=== PATIENT | male | born 1985 | race Caucasian/White ===

== ENCOUNTER 2019-09-22 15:32 | Emergency (ER) | payer BC, SELFPAY ==
[2019-09-22 15:49] VITALS: BP 115/74; PULSE 85; RESP 20; TEMP 36.7; O2SAT 99
--- NOTE | 2019-09-22 15:57 | ED.BACK ---
HPI - Back Pain/Injury General Stated Complaint: Back Pain Time Seen by Provider: 09/22/19 15:57 Source: patient and RN notes reviewed History of Present Illness HPI Narrative: Patient is a 34-year-old male that presents the urgent care with complaints of right mid back pain. Patient states that last night he was at his son's basketball game and throwing shots over and over and feels that he may have pulled something in his back. Patient states it is difficult to bend at the waist or to raise up from a laying position. Patient is used heating pad, ibuprofen, Tylenol. Patient denies shortness of breath. No other acute complaints. Denies any fall or trauma. No acute distress noted. Patient read the plan of care. Related Data Allergies Allergy/AdvReac Type Severity Reaction Status Date / Time iodine Allergy Intermediate THROAT Verified 09/22/19 16:03 SWEMAGNOS shellfish derived Allergy Intermediate THROAT Verified 09/22/19 16:03 KALEN Review of Systems Review of Systems: Narrative: CONSTITUTIONAL: Denies fever, chills, or sweats. EYES: Denies visual changes, redness, or discharge. ENT: Denies rhinorrhea, congestion, sore throat, or otalgia. CARDIOVASCULAR: Denies chest pain, palpitations, or edema. RESPIRATORY: Denies cough or dyspnea. GASTROINTESTINAL: Denies abdominal pain, nausea, vomiting, or diarrhea. GENITOURINARY: Denies dysuria or hematuria. SKIN: Denies rash or itching. MUSCULOSKELETAL: Reports of right mid back pain NEUROLOGIC: Denies headache, numbness, or weakness. All other systems reviewed are negative, except as documented in HPI. PMFSH Comments At the time of my signature, I reviewed and agree with the nursing past medical, surgical, social, and family history. There is no relevant family history pertinent to the patient complaint. Exam Narrative: Exam Narrative: GENERAL: This is a well-nourished, well-developed patient, in no apparent distress. HEAD: normocephalic, atraumatic. EYES: PERRL. Sclera clear/white. Vision is grossly intact. EARS: External ears normal NOSE: External nose normal with no obvious nasal discharge THROAT: Mucous membranes moist NECK: Neck supple CARDIOVASCULAR: Regular rate and rhythm without murmurs, gallops, or rubs. RESPIRATORY: Clear to auscultation. Breath sounds equal bilaterally. No wheezes, rales, or rhonchi. SKIN: warm, intact with no suspicious lesions or rash, good texture and turgor. NEURO: awake, alert, and oriented to person, place and time. There were no obvious focal neurologic abnormalities. EXTREMITIES: No clubbing, cyanosis, or edema. BACK: Moderate right thoracic tenderness exacerbated with movement Course Vital Signs Vital signs: Vital Signs Temperature 98.0 F 09/22/19 15:49 Pulse Rate 85 09/22/19 15:49 Respiratory Rate 20 09/22/19 15:49 Blood Pressure 115/74 09/22/19 15:49 Pulse Oximetry 99 09/22/19 15:49 Temperature 98.0 F 09/22/19 15:49 Pulse Rate 85 09/22/19 15:49 Respiratory Rate 20 09/22/19 15:49 Blood Pressure 115/74 09/22/19 15:49 Pulse Oximetry 99 09/22/19 15:49 Reviewed MDM - Back Pain/Injury MDM Narrative Medical decision making narrative: Advised patient to use ibuprofen as needed. Continue to use heat or ice for comfort. Use Flexeril as a muscle relaxer prior to bedtime. Medication will make you drowsy and you should not drive or operate heavy machinery while on the medication. Follow-up with PCP within 2 to 5 days or for worsening symptoms or failure to improve. Differential Diagnosis Differential diagnosis: Likely lumbar radiculopathy, strain of lumbar region and thoracic back pain Critical Care Time Critical Care Time Critical Care Time: No Discharge Plan Discharge Clinical Impression: Strain of thoracic back region Patient Disposition: Home, Self-Care Condition: Stable Instructions: Antibiotic Form, Thoracic Back Strain (ED) Additional Instructions: Advised patient to
== END 2019-09-22 16:20 | disposition home or self-care (01) ==
PROVIDERS: Emergency Provider Nurse Practitioner Family
DX: S29.012A Strain of muscle and tendon of back wall of thorax, initial encounter (principal); X50.3XXA Overexertion from repetitive movements, initial encounter
CPT/HCPCS: 99213; G0463

== ENCOUNTER 2019-10-26 16:14 | Emergency (ER) | payer BC, SELFPAY ==
--- NOTE | ~2019-10-26 | XR_ITS ---
EXAMINATION: XR chest 2V 10/26/2019 17:01 INDICATION: Cough with fever PROCEDURE: 2 view chest COMPARISON: No prior studies for comparison. FINDINGS: The lungs are clear. The cardiomediastinal silhouette is within normal limits. There are no pleural effusions. There is no pneumothorax suspected. IMPRESSION: 1: NO ACUTE CARDIOPULMONARY DISEASE. Reviewed, dictated and finalized at location A.
[2019-10-26 16:22] VITALS: BP 116/77; PULSE 75; RESP 16; TEMP 36.8; O2SAT 99
--- NOTE | 2019-10-26 16:59 | ED.URI ---
HPI - URI/Sore Throat General Chief Complaint: Upper Respiratory Infection Stated Complaint: Cough/weakness Time Seen by Provider: 10/26/19 16:59 Source: patient, family and RN notes reviewed Mode of arrival: ambulatory Limitations: no limitations History of Present Illness HPI Narrative: 34-year-old male who presents to [facility] care accompanied by spouse with complaints of 3 days of productive cough, fatigue, runny nose, postnasal drainage, sore throat and has been feverish. He states that he has a loose productive cough expectorating some greenish-yellow sputum, some chills and general malaise and has been sleeping almost non stop for the past 3 days. Patient denies any acute shortness of breath or any noted wheezing, respirations even and non labored with no tachypnea, SAO2 99% on room air. MD elicited complaint: cough Pertinent past history: other (tobacco abuse) Onset (ago): day(s) (2) Consistency: constant Severity: moderate Pain scale (0-10): 6 Description of mucous: yellow and green Able to tolerate fluids by mouth: Yes Exacerbating factors: swallowing, exertion and deep breaths Relieving factors: nothing Associated symptoms: fever, chills, myalgias, rhinorrhea, nasal congestion, sore throat and cough Treatments prior to arrival: acetaminophen and other (Mucinex) Related Data Allergies Allergy/AdvReac Type Severity Reaction Status Date / Time iodine Allergy Intermediate THROAT Verified 10/26/19 16:39 KALEN shellfish derived Allergy Intermediate THROAT Verified 10/26/19 16:39 KALEN Review of Systems Review of Systems: Narrative: CONSTITUTIONAL:Positive fever, chills, or sweats. EYES: Denies visual changes, redness, or discharge. ENT: positive rhinorrhea, congestion, sore throat, no otalgia. CARDIOVASCULAR: Denies chest pain, palpitations, or edema. RESPIRATORY: Positive productive cough denies dyspnea. GASTROINTESTINAL: Denies abdominal pain, nausea, vomiting, or diarrhea. GENITOURINARY: Denies dysuria or hematuria. SKIN: Denies rash or itching. MUSCULOSKELETAL: Denies back pain, joint pain, or myalgibody aches. NEUROLOGIC: Denies headache, numbness, or weakness. PSYCHIATRIC: Denies anxiety or depression. All systems reviewed & are unremarkable except as noted in HPI and below PMFSH Past Medical History Medical History (Updated 10/29/19 @ 15:52 by Nara Milian NP) Right hand fracture Social History Social History (Updated 10/29/19 @ 15:40 by Nara Milian NP) Smoking packs per day: 0.5 Smoking cigarettes per day: 10.0 Years smoked: 15 Smoking pack-years: 7.50 Smoking status: Current every day smoker Living arrangements: with family Gender identity (if verbalized by the patient): Male Comments At time of signature, agree with nursing past medical, social history. There is no relevant family history pertinent to the presenting complaint Exam Narrative: Exam Narrative: GENERAL:ill-appearing, well-nourished, and in no acute distress. HEAD: Normocephalic, atraumatic. EYES: PERRLA and EOMI. ENT: Nares red edematous, with yellow green rhinorrhea no epistaxis. Mucous membranes moist.TM's normal with good light reflex, throat red with noted swelling of tonsils and post nasal drainage, no lesions or exudates noted. NECK: Supple.lymphadenopathy CHEST: Coarse breath sounds on auscultation. No respiratory distress. Loose productive cough of greenish yellow mucous, SAO2 99% on room air HEART: Regular rate and rhythm. No murmur heard. Normal peripheral pulses. ABDOMEN: Soft, nontender, nondistended, normal active bowel sounds. EXTREMITIES: Normal range of motion. No edema. SKIN: Warm, dry, no rash. NEURO: No focal deficits. Alert and oriented x3. Course Vital Signs Vital signs: Vital Signs Temperature 36.8 C 10/26/19 16:22 Pulse Rate 75 10/26/19 16:22 Respiratory Rate 16 10/26/19 16:22 Blood Pressure 116/77 10/26/19 16:22 Pulse Oximetry 99 10/26/19 16:22 Tem
== END 2019-10-26 17:37 | disposition home or self-care (01) ==
PROVIDERS: Emergency Provider Registered Nurse; PCP Family Medicine
DX: J40 Bronchitis, not specified as acute or chronic (principal); J02.9 Acute pharyngitis, unspecified; F17.210 Nicotine dependence, cigarettes, uncomplicated
CPT/HCPCS: 71046; 87081; 87804; 87880; 99213; G0463

== ENCOUNTER 2019-11-05 15:02 | Emergency (ER) | payer BC, SELFPAY ==
[2019-11-05 15:10] VITALS: BP 113/74; PULSE 71; RESP 14; TEMP 36.8; O2SAT 99
--- NOTE | 2019-11-05 15:21 | ED.URI ---
HPI - URI/Sore Throat General Chief Complaint: Upper Respiratory Infection Stated Complaint: cough/hot flashes Time Seen by Provider: 11/05/19 15:21 Source: patient and RN notes reviewed Mode of arrival: ambulatory Limitations: no limitations History of Present Illness HPI Narrative: 34-year-old male who presents to [facility] care with complaints of persistent cough for the past 2-3 weeks. Patient was treated with antibiotics, steroids, and inhaler on the 25 of October and patient states that he completed prescribed medications. Patient states that he has a sore throat especially on the left side of his throat, ad his left neck gland is tender. Patient denies any recent fevers chills or sweats, states that he has dry and loose cough of greenish mucous. Patient continues to use tobacco daily. MD elicited complaint: cough, sore throat, rhinorrhea and nasal congestion Pertinent past history: other (recent bronchitis and tobacco abuse) Onset (ago): day(s) (2 days sore throat and left lymph gland discomfort, 2-3 weeks cough) Consistency: constant Severity: moderate Pain scale (0-10): 6 Description of mucous: green Exacerbating factors: swallowing and exertion Relieving factors: nothing Associated symptoms: rhinorrhea, nasal congestion, sore throat and cough Treatments prior to arrival: cold medicine and other (recently completed antibiotic steroid for bronchitis) Related Data Allergies Allergy/AdvReac Type Severity Reaction Status Date / Time iodine Allergy Intermediate THROAT Verified 11/05/19 15:09 KALEN shellfish derived Allergy Intermediate THROAT Verified 11/05/19 15:09 KALEN Review of Systems Review of Systems: Narrative: CONSTITUTIONAL: Denies fever, chills, or sweats. EYES: Denies visual changes, redness, or discharge. ENT: positive rhinorrhea, congestion, sore throat, no otalgia. CARDIOVASCULAR: Denies chest pain, palpitations, or edema. RESPIRATORY:persistent loose and dry cough denies dyspnea. GASTROINTESTINAL: Denies abdominal pain, nausea, vomiting, or diarrhea. GENITOURINARY: Denies dysuria or hematuria. SKIN: Denies rash or itching. MUSCULOSKELETAL: Denies back pain, joint pain, or myalgia. NEUROLOGIC: Denies headache, numbness, or weakness. PSYCHIATRIC: Denies anxiety or depression. All systems reviewed & are unremarkable except as noted in HPI and below PMFSH Past Medical History Medical History (Updated 11/07/19 @ 16:54 by Nara Milian NP) Bronchitis Right hand fracture Social History Social History (Updated 11/07/19 @ 16:50 by Nara Milian NP) Smoking packs per day: 0.5 Smoking cigarettes per day: 10.0 Years smoked: 15 Smoking pack-years: 7.50 Smoking status: Current every day smoker Living arrangements: with family Gender identity (if verbalized by the patient): Male Comments At time of signature, agree with nursing past medical, social history. There is no relevant family history pertinent to the presenting complaint Exam Narrative: Exam Narrative: GENERAL: Well-appearing, well-nourished, and in no acute distress. HEAD: Normocephalic, atraumatic. EYES: PERRLA and EOMI. ENT: Nares red, greenish nasal drainae, no epistaxis. Mucous membranes moist.TM's normal with good light reflex, throat red left tonsil area with mild tonsil swelling, no lesions or exudates NECK: Supple.left lymphadenopathy CHEST: Clear to auscultation. No respiratory distress.persistent cough denies any shortness of breath, SAO2 99% on room air HEART: Regular rate and rhythm. No murmur heard. Normal peripheral pulses. ABDOMEN: Soft, nontender, nondistended, normal active bowel sounds. EXTREMITIES: Normal range of motion. No edema. SKIN: Warm, dry, no rash. NEURO: No focal deficits. Alert and oriented x3. Course Vital Signs Vital signs: Vital Signs Temperature 36.8 C 11/05/19 15:10 Pulse Rate 71 11/05/19 15:10 Respiratory Rate 14 11/05/19 15:10 Blood Pressure 113/74 11/05/19 15:10
== END 2019-11-05 16:05 | disposition home or self-care (01) ==
PROVIDERS: Emergency Provider Registered Nurse; PCP Family Medicine
DX: R05 Cough (principal); J02.9 Acute pharyngitis, unspecified; F17.210 Nicotine dependence, cigarettes, uncomplicated
CPT/HCPCS: 86308; 87081; 87880; 99213; G0463

== ENCOUNTER 2020-02-18 12:39 | Emergency (ER) | payer BC, SELFPAY ==
--- NOTE | ~2020-02-18 | XR_ITS ---
EXAMINATION: XR shoulder LT min 2V DATE: 02/18/2020 13:20 INDICATION: Left shoulder pain and swelling. Injury. TECHNIQUE: 4 views of left shoulder were obtained. COMPARISON: Chest 2 views 10/26/2019 FINDINGS: There is inferior dislocation of the acromion with respect to the distal clavicle. There is widening of the coracoclavicular interval, consistent with coracoclavicular ligament tear. No fractu re. The glenohumeral joint is normal. IMPRESSION: 1. Type III acromioclavicular separation. Reviewed, dictated and finalized at location A.
[2020-02-18 12:52] VITALS: BP 131/82; PULSE 72; RESP 18; TEMP 36.3; O2SAT 98
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
== END 2020-02-18 13:45 | disposition home or self-care (01) ==
PROVIDERS: Emergency Provider Nurse Practitioner Family
DX: S43.102A Unspecified dislocation of left acromioclavicular joint, initial encounter (principal); V19.9XXA Pedal cyclist (driver) (passenger) injured in unspecified traffic accident, initial encounter; F17.210 Nicotine dependence, cigarettes, uncomplicated
CPT/HCPCS: 73030; 99213; A4565; G0463

== ENCOUNTER 2020-03-13 16:54 | Outpatient (CLI) | payer BC, SELFPAY ==
--- NOTE | ~2020-03-13 | MR_ITS ---
EXAMINATION: MR shoulder LT wo con DATE: 03/13/2020 17:45 INDICATION: Left shoulder pain. TECHNIQUE: Magnetic resonance imaging (MRI) of the left shoulder was performed without intravenous co ntrast. Sequences included axial PD-weighted FS FSE, coronal oblique PD-weighted FS FSE and T2-weight ed FS FSE, and sagittal oblique T2-weighted FS FSE and T1-weighted FSE. COMPARISON: Left shoulder radiographs 03/06/2020 FINDINGS: Coracoacromial arch: There is inferior dislocation of the acromion with respect to distal clavicle with complete tear of t he joint capsule. There is a complete tear of the coracoclavicular ligament. There is a small volume of fluid around distal clavicle. The acromion undersurface is flat in morphology (type I). There is a physiologic volume of fluid in subacromial/subdeltoid bursa. Rotator cuff: There is mild supraspinatus and infraspinatus tendinopathy. Teres minor tendon is normal. Subscapular is tendon is normal. No tear. There is no asymmetric fatty atrophy of the rotator cuff muscle bellies . Biceps tendon and glenoid labrum: Biceps tendon is in bicipital groove. Intra-articular biceps tendon is normal. The glenoid labrum is intact. Fluid: There is no glenohumeral joint effusion. Bones/cartilage: Glenoid cartilage is normal. Humeral head cartilage is normal. IMPRESSION: 1. Type III acromioclavicular separation. 2. Mild rotator cuff tendinopathy. No tear. Reviewed, dictated and finalized at location A.
== END 2020-03-13 16:55 | disposition home or self-care (01) ==
PROVIDERS: PCP Family Medicine; Visit Provider Orthopaedic Surgery
DX: S43.102A Unspecified dislocation of left acromioclavicular joint, initial encounter (principal); M75.82 Other shoulder lesions, left shoulder; X58.XXXA Exposure to other specified factors, initial encounter
CPT/HCPCS: 73221

== ENCOUNTER 2020-04-19 00:57 | Outpatient (CLI) | payer BC, SELFPAY ==
[2020-04-19 18:13] LABS: SARS-CoV-2 RNA PCR Negative
== END 2020-04-19 00:58 | disposition home or self-care (01) ==
LOC: ANHCOVIDDT 00:57
PROVIDERS: PCP Family Medicine; Visit Provider Orthopaedic Surgery
DX: Z01.812 Encounter for preprocedural laboratory examination (principal); Z20.828 Contact with and (suspected) exposure to other viral communicable diseases
CPT/HCPCS: 87635; C9803; U0003

== ENCOUNTER 2020-04-22 00:42 | Day surgery (SDC) | payer BC, SELFPAY ==
[2020-04-09 12:13] VITALS: BMI 28.2
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
[2020-04-22] VITALS (8 sets, daily range): BP systolic 121–136; BP diastolic 57–91; PULSE 62–79; RESP 14–20; TEMP 36.3–36.4; O2SAT 96–100
--- NOTE | ~2020-04-22 | XR_ITS ---
EXAMINATION: XR surgery orthopedic DATE: 04/22/2020 14:16 INDICATION: Left shoulder joint reconstruction TECHNIQUE: 2 fluoroscopic spot images of the left shoulder were obtained during procedure performed maame Salinas. Radiologist was not present for the imaging or procedure. The amount of fluoroscopy ti me used during this procedure was 0.1 minutes. COMPARISON: 03/06/2020 FINDINGS: Images demonstrate placement of fixation devices at the left coracoid process and lateral left clavic le likely for repair of a left acromioclavicular joint separation with coracoclavicular ligament tear . The prior widening of the acromioclavicular and coracoclavicular intervals is significantly decreas ed, now likely near-anatomic. No fractures identified. IMPRESSION: 1. Fluoroscopy utilized during likely repair of an acromioclavicular joint separation with coracoclav icular ligament tear. See procedure note for further detail. Reviewed, dictated and finalized at location A. IMPRESSION: 1. Fluoroscopy utilized during likely repair of an acromioclavicular joint sepa ration with coracoclavicular ligament tear. See procedure note for further deta il.
--- NOTE | 2020-04-22 08:36 | WPDHPUPDATE1 ---
History and Physical Update Update Date/Time: 04/22/20 08:36 History and Physical has been reviewed, including an updated exam of the patient. There are NO changes in the patient's condition. Risks, benefits, and alternatives have been discussed and questions answered. Patient agrees to proceed with procedure.
--- NOTE | 2020-04-22 09:27 | WPDANESEPPF ---
Anes - Initial Pre Proc Eval Procedure: Operation Date: 04/22/20 11:30 Proposed Procedures p Left Shoulder Acromioclavicular Joint Reconstruction - Tucker Salinas MD Date/Time: 04/22/20 09:27 Surgeon: Tucker Salinas MD Pre Op Diagnosis: Left Grade III AC Joint separation Patient Data Age: 34 Gender: M Height: 6 ft 5 in Weight: 107.96 kg Allergies Allergy/AdvReac Type Severity Reaction Status Date / Time iodine Allergy Intermediate THROAT Verified 04/09/20 12:13 SWELLS shellfish derived Allergy Intermediate THROAT Verified 04/09/20 12:13 SWELLS Home Medications Medication Instructions Recorded Confirmed Type chlorhexidine gluconate 4 % 1 applic TOPICAL ONCE #237 ml 03/25/20 04/09/20 Rx topical liquid oxycodone-acetaminophen 5 mg-325 1 tablet PO Q8H PRN #10 tablet 04/14/20 04/14/20 Rx mg tablet Patient hx anesthesia problems: none Family hx anesthesia problems: none PMFSH Past Medical History Medical History Bronchitis DAYANARA (obstructive sleep apnea) Right hand fracture Family History Family History Other Diabetes mellitus Heart disease Hypertension Social History Social History Smoking packs per day: 0.5 Smoking cigarettes per day: 10.0 Years smoked: 15 Smoking pack-years: 7.50 Smoking status: Current every day smoker Tobacco type: cigarettes Alcohol intake: current Drinks per week: 2 Gender identity (if verbalized by the patient): Male Spiritual care concerns: No Anes - Eval Final PreProcedure Day of Procedure 04/22/20 09:27 Patient weight: overweight Heart: regular rate and rhythm Lungs: decreased breath sounds Airway: Mallampati scale class II Neurological: alert and oriented Last oral intake: >/= 8 hours ASA classification: II Emergent: no Anesthetic plan: proceed Anesthesia type and monitoring: general ETT and standard monitoring Informed Consent: The patient's anesthetic plan and its attendant risks and benefits were discussed with the patient/family/POA. Questions were solicited and answers provided to the satisfaction of the patient/family/POA.
[2020-04-22] MEDS: CELECOXIB 200 MG CAPSULE PO (10:09)
[2020-04-22] MEDS: LACTATED RINGERS 1,000 ML 30 ML IV CONT ×2 (10:09→14:44)
[2020-04-22] MEDS: ACETAMINOPHEN 500 MG TABLET 1000 MG PO (11:14)
[2020-04-22] MEDS: ceFAZolin 2 GM/D5W 50 ML 2 GM/50 ML BAG IVPB (12:24)
[2020-04-22] MEDS: ONDANSETRON INJ 4 MG/2 ML VIAL IV PUSH (15:10)
--- NOTE | 2020-04-22 15:16 | WPDANESPNB ---
Anes - Peripheral Nerve Block Date/Time: 04/22/20 15:16 I have discussed with the patient/family/POA the placement of a peripheral nerve block for post-operative pain management, including associated risks, benefits, complications, and side effects. Alternative methods of post-operative analgesia were detailed. Questions were solicited and answers provided to the satisfaction of the patient/family/POA. Time-Out: A pre-procedural Time-Out was completed immediately before starting the procedure and confirmed: Patient Identification, Site, Procedure, Patient Position and the Availability of Requisite Equipment. Clinical Indications: Acute post-operative pain management requested by the operative surgeon. Nerve Block Insertion Note Anes-nerve block: interscalene left Patient position: supine Skin prep: chlorhexidine Needle: 22 gauge, stimulating, insulated echogenic needle. Needle length: 80 mm Technique: ultrasound (in plane) Injectate: bupivacaine 0.5% with epi 5 mcg/ml (20cc) Observations: tolerated well Complications: none Procedure start time:: 1300 Procedure end time:: 1305
[2020-04-22] MEDS: diphenhydrAMINE HCl INJ 50 MG/ML VIAL 25 MG IV PUSH (15:42)
--- NOTE | 2020-04-22 15:54 | PM.PROC ---
Procedure Note - Detailed Date of procedure: 04/22/20 Pre-op diagnosis: Left Grade III AC Joint separation Post-op diagnosis: same Procedure performed: LEFT AC JOINT RECONSTRUCTION Description of procedure: THE PATIENT WAS TAKEN TO THE OR AND PLACED IN A BEACH CHAIR POSITION AFTER SUCCESSFUL ANESTHESIA. THE LEFT UPPER EXTREMITY WAS PREPPED AND DRAPED IN THE STERILE FASHION. AN INCISION WAS MADE FROM THE DISTAL CLAVICLE TO THE CORACOID PROCESS. BLUNT DISSECTION WAS PREFORMED UNTIL THE CORACOID PROCESS WAS VISUALIZED. A GUIDE WAS PLACED AT THE UNDER SURFACE OF THE CORACOID AND THE SUPERIOR SURFACE OF THE DISTAL CLAVICLE. A DRILL WAS PLACED THROUGH THE DRILL GUIDE UNTIL IT EXITED OUT THE UNDERSURFACE OF THE CORACOID. A HUSSEN SUTURE PASSER WAS INSERTED FROM PROXIMAL TO DISTAL. A SUTURE SHUTTLE WAS THEN PLACED THROUGH THE SUTURE PASSER AND EXITED PROXIMALLY. #5 FIBERWIRE AC REPAIR SYSTEM WAS THEM SHUTTLED FROM PROXIMAL TO DISTAL AND EXITING OUT OF THE CORACOID. A DOG BONE SUTURE BUTTON WAS THEN THREADED THROUGH THE AC REPAIR SYSTEM #5 FIBERWIRE SUTURES. THE DOG BONE BUTTON SAT FLUSH ON THE UNDER SURFACE OF THE CORACOID, THE SUTURES WERE TENSIONED WILE THE AC JOINT WAS HELD REDUCED. ONCE THE TENSIONING WAS COMPLETE C ARM WAS USED TO CONFIRM IMPLANT POSITION AND REDUCTION OF THE AC JOINT. THE RECONSTRUCTION WAS STABLE. THE SHOULDER WAS TAKEN THROUGH A RANGE OF MOTION AND THE AND THE RECONSTRUCTION WAS STABLE. THE WOUND WASHED THOROUGHLY. THE DEEP LAYERS WERE APPROXIMATED WITH 0 VYCRIL SUTURE, 2-0 WAS USED TO ON THE SUB CUTANEOUS LAYER AND 3-0 QUIL WAS USED TO APPROXIMATE THE SKIN. DERMABOND WAS PLACED ON THE SKIN. STERILE DRESSING WAS APPLIED. THE PATIENT WAS EXTUBATED AND SENT TO THE RECOVERY ROOM. Surgeon: Tucker Salinas MD
== END 2020-04-22 16:30 | disposition home or self-care (01) ==
PROVIDERS: Visit Provider Orthopaedic Surgery
PROC: (CPT 23420; principal; 2020-04-22 11:30)
DX: S43.122A Dislocation of left acromioclavicular joint, 100%-200% displacement, initial encounter (principal); G89.18 Other acute postprocedural pain; G47.33 Obstructive sleep apnea (adult) (pediatric); F17.210 Nicotine dependence, cigarettes, uncomplicated; V19.9XXA Pedal cyclist (driver) (passenger) injured in unspecified traffic accident, initial encounter; Y93.9 Activity, unspecified; Y92.9 Unspecified place or not applicable; Y99.9 Unspecified external cause status
CPT/HCPCS: 64415; 23472; A9270; J0690; J1100; J1200; J2250; J2370; J2405; J2704; J2710; J3010; J7120

== ENCOUNTER 2023-08-11 14:02 | Emergency (ER) | payer OTHER, BC, SELFPAY ==
--- NOTE | 2023-08-11 14:08 | ED.URI ---
HPI - URI/Sore Throat General Chief Complaint: Upper Respiratory Infection Stated Complaint: cough/hurting chest Time Seen by Provider: 08/11/23 14:08 Source: patient Mode of arrival: ambulatory Limitations: no limitations History of Present Illness HPI Narrative: Patient is a 38-year-old male who presents with 1 month of congestion and productive cough. Patient has not taken anything for symptoms. Denies any fever, chills, nausea, vomiting, diarrhea. Patient reports coughing fits are worse at night. Related Data Allergies Allergy/AdvReac Type Severity Reaction Status Date / Time iodine Allergy Intermediate THROAT Verified 08/11/23 14:13 SWELLS shellfish derived Allergy Intermediate THROAT Verified 08/11/23 14:13 KALEN Review of Systems Review of Systems: All systems reviewed & are unremarkable except as noted in HPI and below Constitutional: Constitutional: Denies body ache(s), Denies chills, Denies fatigue, Denies fever(s), Denies headache(s), Denies malaise and Denies weakness Eyes: Eyes: Denies blurry vision, Denies itchy eyes and Denies loss of vision ENT: Denies otalgia, Denies headache(s), Reports nasal congestion, Denies sinus pain and Denies sore throat Cardiovascular: Cardiovascular: Denies chest pain, Denies irregular heart rhythm and Denies dyspnea Respiratory: Respiratory: Reports cough and Denies dyspnea Gastrointestinal: Gastrointestinal: Denies abdominal pain, Denies diarrhea, Denies nausea and Denies vomiting Musculoskeletal: Musculoskeletal: Denies back pain, Denies myalgias and Denies arthralgias Integumentary/Breasts: Skin/Breast: Denies pruritus and Denies rash Neurologic: Denies headache(s), Denies loss of vision and Denies weakness Psychiatric: Psychiatric: Reports no additional psychiatric complaints Endocrine: Endocrine: Denies fatigue Allergic/Immunologic: Allergic/Immunologic: Denies itchy eyes PMFSH Past Medical History Medical History (Updated 08/11/23 @ 14:43 by Doreen Torres APRN) Bronchitis DAYANARA (obstructive sleep apnea) Right hand fracture Family History Family History Other Diabetes mellitus Heart disease Hypertension Social History Social History Smoking packs per day: 0.5 Smoking cigarettes per day: 10.0 Years smoked: 15 Smoking pack-years: 7.50 Smoking status: Current every day smoker Tobacco type: cigarettes Alcohol intake: current Drinks per week: 2 Alcohol use details: Occasional Living arrangements: with family Gender identity (if verbalized by the patient): Male Spiritual care concerns: No Comments At time of signature, agree with nursing past medical, surgical, social and family history. There is no relevant family history pertinent to the presenting complaint. Exam Const: General: cooperative, healthy appearing, comfortable, no acute distress and well nourished Nutritional Appearance: well nourished Orientation/consciousness: patient oriented x3 Limitations: no limitations HENMT: Head: normal to inspection, normocephalic and atraumatic Ears: hearing grossly normal bilaterally, external ears normal, TM's normal bilaterally, EAC's normal and no periauricular adenopathy Face/Nose/Sinus: Normal external nose present, Abnormal mucous membranes and turbinates present erythematous bilateral and diffuse, normal facial exam, sinuses nontender and face symmetric Face and sinus: normal facial exam, sinuses nontender and face symmetric Mouth: Yes Normal oral and palatal mucosa present, Yes lip normal, Yes tongue normal, Yes Normal salivary glands and ducts present, Yes oropharynx normal and Yes moist mucous membranes Teeth and gingiva: dentition normal Throat: posterior oropharynx normal, tonsils normal and uvula midline Eyes: General: appearance normal, both eyes and all related structures Alignment and Positi
[2023-08-11 14:13] VITALS: BP 141/73; PULSE 75; RESP 16; TEMP 36.3; O2SAT 96
== END 2023-08-11 14:52 | disposition home or self-care (01) ==
PROVIDERS: Emergency Provider Nurse Practitioner Family
DX: J06.9 Acute upper respiratory infection, unspecified (principal); F17.210 Nicotine dependence, cigarettes, uncomplicated
CPT/HCPCS: 99203; G0463

== ENCOUNTER 2023-09-15 15:19 | Emergency (ER) | payer OTHER, MEDICAID, SELFPAY ==
[2023-09-15 15:26] VITALS: BP 136/84; PULSE 80; RESP 20; TEMP 36.9; O2SAT 100
--- NOTE | 2023-09-15 16:06 | ED.URI ---
HPI - URI/Sore Throat General Chief Complaint: Upper Respiratory Infection Stated Complaint: Vomiting/Cough/Nausea/Shortness of Breath Source: patient and RN notes reviewed Mode of arrival: ambulatory Limitations: no limitations History of Present Illness HPI Narrative: 38 y/o male presented for c/o n/v/d. States he started feeling bad yesterday around 1600, then developed nausea, vomiting and a cough which causes vomiting. Reports fatigue today due to lack of sleep. Girlfriend with similar symptoms. Denies sob, wheezing, or fever. Not taking anything. MD elicited complaint: cough Related Data Allergies Allergy/AdvReac Type Severity Reaction Status Date / Time iodine Allergy Intermediate THROAT Verified 08/11/23 14:13 SWELLS shellfish derived Allergy Intermediate THROAT Verified 08/11/23 14:13 KALEN Review of Systems Review of Systems: CONSTITUTIONAL: Endorses malaise, chills, sweats, fever EYES: Denies visual changes, redness, or discharge ENT: denies rhinorrhea, congestion, sinus pain, otalgia, sore throat CARDIOVASCULAR: Denies chest pain, palpitations, edema RESPIRATORY: Reports cough, Denies dyspnea GASTROINTESTINAL: Denies abdominal pain reports nausea, vomiting, diarrhea SKIN: Denies rash or itching MUSCULOSKELETAL:denies myalgia PMFSH Past Medical History Medical History Bronchitis DAYANARA (obstructive sleep apnea) Right hand fracture Family History Family History Other Diabetes mellitus Heart disease Hypertension Social History Social History Smoking packs per day: 0.5 Smoking cigarettes per day: 10.0 Years smoked: 15 Smoking pack-years: 7.50 Smoking status: Current every day smoker Tobacco type: cigarettes Alcohol intake: current Drinks per week: 2 Alcohol use details: Occasional Living arrangements: with family Gender identity (if verbalized by the patient): Male Spiritual care concerns: No Exam Narrative: GENERAL: mildly Ill-appearing, nontoxic no acute distress. ENT: Mucous membranes moist. TM pearly portillo with dull light reflex bilaterally; no tragal tenderness. Oropharynx not erythematous without lesions or exudate, no drooling, no hoarseness, no trismus, uvula midline. CHEST: Clear to auscultation, breath sounds equal. HEART: Regular rate and rhythm. ABD: soft flat nontender SKIN: Warm, dry, no rash. NEURO: Alert and oriented x3. PSYCH: Normal mood and affect Course Course Emergency Course: Patient is aware of diagnosis, understands and agrees to treatment plan. Anticipatory guidance given. Patient agrees to follow-up as directed and is aware of reasons to seek care at the emergency department. Portions of this record may have been created with voice recognition software Level of Care: Express Care Visit Vital Signs Vital signs: Vital Signs Temperature 98.5 F 09/15/23 15:26 Pulse Rate 80 09/15/23 15:26 Respiratory Rate 20 09/15/23 15:26 Blood Pressure 136/84 09/15/23 15:26 Pulse Oximetry 100 09/15/23 15:26 Oxygen Delivery Room Air 09/15/23 15:26 Temperature 98.5 F 09/15/23 15:26 Pulse Rate 80 09/15/23 15:26 Respiratory Rate 20 09/15/23 15:26 Blood Pressure 136/84 09/15/23 15:26 Pulse Oximetry 100 09/15/23 15:26 Oxygen Delivery Room Air 09/15/23 15:26 reviewed MDM - URI/Sore Throat MDM Narrative Medical decision making narrative: Flu and COVID negative. Results reviewed with patient. Pt agreeable to monitor symptoms and if no improvement he will go to the ER. Discussed physical exam findings. Advised supportive measures and signs/symptoms to go to the ER. Pt is appropriate for outpt treatment and f/u. Differential Diagnosis Differential diagnosis: Likely upper respiratory infection, sinusitis, viral infection an
== END 2023-09-15 16:18 | disposition home or self-care (01) ==
PROVIDERS: Emergency Provider Nurse Practitioner Family
DX: B34.9 Viral infection, unspecified (principal); Z20.822 Contact with and (suspected) exposure to COVID-19; F17.210 Nicotine dependence, cigarettes, uncomplicated
CPT/HCPCS: 87426; 87804; 99213; G0463

== ENCOUNTER 2024-09-22 13:30 | Emergency (ER) | payer BC, SELFPAY ==
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
--- OUTSIDE RECORDS SUMMARY | 2024-09-22 13:37 | XMS_ITS | Continuity of Care Document ---
Author Organization [facility] Address [id number] [address] Phone Care Team Providers Care Sub Acute Care Nurse Name Role Phone Hamzah Ledezma DDS Unavailable Unavailable Allergies, Adverse Reactions, Alerts Substance Reaction Status Criticality No Known allergies Procedures Procedure Date Limited Oral Evaluation Problem Focused Intraoral Periapical First Film Intraoral Periapical Each Additional Film Extraction, Erupted Tooth Or Exposed Sierra t (Elevati Extraction, Erupted Tooth Or Exposed Sierra t (Elevati Limited oral eval, x-ray & 1st extractio n Urgent Each Additional Extraction Advance Directives Directive Yes / No Effective Date File Name No Information Encounters Encounter Description Practice Location Reason(s) For Visit Diagnoses Date Provider Providers Copied on Encounter [facility], [id number] [place], [place], [id number], [place] tel:[phone] Dental Behavioral Medicine F2 No Information 2 Brisa Goodson. [address] [place], [place], [id number], [place]. tel:[phone] Referring Provider: Hamzah Rivera, [address] [place], [address] . tel:[phone] [facility], [id number] [place], [place], [address], [place] tel:[phone] Pediatrics F1 Insufficient social insurance and welfare supportLow income [facility]. [address], [place], [address], [place]. tel:[phone] Family History Family Member Type Diagnosis Age At Onset No Information Payers Payer name Insurance type Covered constitution party ID Authoriza tion(s) No Information Social History Type Description Quantity Date Captured Comments Alcohol Use Details No Caffeine Use Details Unknown Tobacco Use Status No Information Smoking Status No Information Sex Male Chief Complaint And Reason For Visit No Information Reason For Referral Reason For Referral No Information Plan Of Treatment Date Type Action Status Referral Ordered: Referrals: Location: [facility] ordered History Of Present Illness Encounter Date Complaint History Of Prese nt Illness No Information Functional Status Date Functional Assessmen t No Information Instructions Date Instruction Additional Infor mation No Information Assessments Type Assessment Date No Information Patient Care Teams Name Effective Dates (start - stop) Status Members No Information
--- OUTSIDE RECORDS SUMMARY | 2024-09-22 13:37 | XMS_ITS | Clinical Summary ---
Author Organization [facility] Address [address] [place] [address] Care Team Providers Care Molding Associate Name Role Phone No, Physician Primary Care Provider [phone] Allergies Active Allergy Reactions Criticality Noted Date Comments Iodine Shellfish Containing Products Medications HYDROcodone-acet aminophen (NORCO) 5-325 mg per tabletIndication s:Pain Take 1 tablet by mouth every 6 (six) hours as needed for pain 16 tablet 02/08/2020 Active meloxicam (MOBIC) 15 mg tablet Take 1 tablet (15 mg total) by mouth daily 30 tablet 09/17/2022 Active artificial tears (SYSTANE) 0.3 % gel Apply 1 drop to left eye every hour as needed (Dry eye, while awake.) 10 mL 01/10/2023 Active valACYclovir (VALTREX) 1 gram tablet Take 1 tablet (1,000 mg total) by mouth 3 (three) times a day 21 tablet 01/10/2023 Active Active Problems Problem Noted Date Diagnosed Date Facial laceration 01/25/2019 Immunization, tetanus-diphtheria 01/25/2019 Immunizations Name Administration Dates Next Due Tdap 01/25/2019 Social History Tobacco Use Types Packs/Day Years Used Date Smoking Tobacco: Every Day Cigarettes Smokeless Tobacco: Never Alcohol Use Standard Drinks/Week Comments Never 0 (1 standard drink = 0.6 oz pur e alcohol) AUDIT-C Answer Date Recorded Frequency of Alcohol Consumption Never 01/25/2019 Average Number of Drinks Not on file 019 Frequency of Binge Drinking Not on file 01/13 Personal Safety Answer Date Recorded Getting School Help Needed Not on file 10/01 Sex and Gender Information Value Date Recorded Sex Assigned at Not on file 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 Gender Identity Not on file Sexual Orientation Not on file Obstetrics History Last Filed Vital Signs Vital Sign Reading Time Taken Comments Blood Pressure 128/75 01/10/2023 9:13 PM CDT Pulse 86 01/10/2023 9:13 PM CDT Temperature 36.7 C (98.1 F) 01/10/2023 9:28 PM CDT Respiratory Rate 12 01/10/2023 9:13 PM CDT Oxygen Saturation 97% 01/10/2023 9:13 PM CDT Inhaled Oxygen Concentration - - Weight 99.8 kg (220 lb) 01/10/2023 7:34 PM CDT Height 195.6 cm (6' 5 ) 01/10/2023 7:34 PM CDT Body Mass Index 26.09 01/10/2023 7:34 PM CDT Plan of Treatment Health Maintenance Due Date Last Done Comments Depression Screening 1985 Hepatitis C Screening 1985 Pneumococcal vaccine <65 (1 of 2 - PCV) 1991 Varicella Vaccines (1 of 2 - 13+ 2-dose series) 1998 Hepatitis B Screening 2003 Regular Well Visit/Exam 18-64 2003 Influenza Vaccine (#1) 2024 DTaP/Tdap/Td Vaccine (4 - Td or Tdap) 01/25/2029 01/25/2019, 05/30/2017, 01/07/2012 HPV Vaccines Aged Out No longer eligi ble based on patient's age to complete this topic Insurance PLAN HOME STATE RESTRICTED Care Teams Molding Associate Relationship Specialty Start Date End Date No, Physician PCP - General 01/18/17
--- OUTSIDE RECORDS SUMMARY | 2024-09-22 13:37 | XMS_ITS | Clinical Summary ---
Author Organization [facility] Address [address] [place] [address] Phone Care Team Providers Care Coat Presser Name Role Phone Provider, None Primary Care Provider Unavailabl Cristhian Rice MD Unavailable [phone] Skyler Gibbs MD Unavailable Allergies Active Allergy Reactions Criticality Noted Date Comments Iodine Anaphylaxis 05/30/2017 Shrimp (Diagnostic) Other (see Comments) 2023 Medications meloxicam (MOBIC) 7.5 MG Tablet Take 1 Tablet by mouth daily as needed for Moderate or more severe pain. 30 Tablet 4 Active Additional Information Patient not taking.Reported on 04/10/2024 HYDROcodone-lyndsey taminophen (NORCO) 5-325 MG TabletIndicatio ns:Acromioclavi cular joint separation, left, sequela Take 1 Tablet by mouth every 8 hours as needed for Severe pain. 15 Tablet 4 Active Additional Information Patient not taking.Reported on 04/26/2024 naproxen (NAPROSYN) 500 MG Tablet Take 1 Tablet by mouth 2 times daily as needed for Moderate or more severe pain. 20 Tablet 4 Active Melatonin 5 MG Tablet Take 5 mg by mouth nightly as needed. Active oxyCODONE (ROXICODONE) 5 MG TabletIndicatio ns:Varicocele Take 1 Tablet by mouth every 6 hours as needed for Severe pain. 10 Tablet 4 Active Additional Information Patient not taking.Reported on 04/26/2024 ketorolac (TORADOL) 10 MG Tablet Take 1 Tablet by mouth every 8 hours as needed for Moderate or more severe pain. 10 Tablet Active Additional Information Patient not taking.Reported on 04/26/2024 oxyCODONE-aceta minophen (Percocet) 7.5-325 MG TabletIndicatio ns:Left varicocele Take 1 Tablet by mouth every 6 hours as needed for Severe pain. 10 Tablet 4 Active Additional Information Patient not taking.Reported on 04/26/2024 morphine IMMEDIATE RELEASE (MS IR) 15 MG TabletIndicatio ns:Post-operati ve pain Take 1 Tablet by mouth every 4 hours as needed for Moderate or more severe pain. 15 Tablet Active Additional Information Patient not taking.Reported on 04/26/2024 Active Problems No known active problems Immunizations Immunization Administration Dates Next Due TDAP Vaccine 01/25/2019,05/30/2017,01/07/2012 Family History Medical History Relation Name Comments Diabetes Father Heart Attack Father Heart Surgery Father QUADRUPLE BYPA SS Hypertension Father Bipolar Disorder Mother Relation Name Status Comments Father Mother Alive Social History Tobacco Use Types Packs/Day Years Used Date Smoking Tobacco: Every Day Cigarettes Smokeless Tobacco: Never Tobacco Cessation:Ready to Q uit: Not Asked; Counseling Given: Not Answered Alcohol Use Standard Drinks/Week Comments Yes 0 (1 standard drink = 0.6 oz pur e alcohol) every other day Sexually Active Control Partners Comments Not Currently Sex and Gender Information Value Date Recorded Sex Assigned at Not on file Legal Sex Male 10:41 PM CDT Gender Identity Not on file Sexual Orientation Not on file Last Filed Vital Signs Vital Sign Reading Time Taken Comments Blood Pressure 134/89 04/26/2024 7:59 AM CDT Pulse 100 04/26/2024 7:59 AM CDT Temperature 36.5 C (97.7 F) 04/15/2024 9:26 AM CDT Respiratory Rate 18 04/26/2024 7:59 AM CDT Oxygen Saturation 99% 04/26/2024 7:59 AM CDT Inhaled Oxygen Concentration - - Weight 90.7 kg (200 lb) 04/26/2024 7:59 AM CDT Height 195.6 cm (6' 5 ) 04/26/2024 7:59 AM CDT Body Mass Index 23.72 04/26/2024 7:59 AM CDT Plan of Treatment Health Maintenance Due Date Last Done Comments Hepatitis C Virus (HCV) Screening 1985 Hepatitis B Immunization (1 of 3 - 19+ 3-dose series) 2004 Pneumococcal Immunization Combined (1 of 2 - PCV) 2004 Influenza Immunization (#1) 2024 SARS-COV-2 Immunization ( - season) 2024 Td Immunization Every 10 Years (Adults With 1 Tdap) 01/25/2029 01/25/2019, 05/30/2017, 01/07/2012 Respiratory Syncytial Virus (RSV) Immunization (Adult) (1 - 1-dose 75+ series) 2060 DTaP/Tdap/Td Immunization Discontinued 2018, 05/30/2017, 01/07/2012 Meningococcal Immunization (ACWY) Aged Out No longer eligible based on patient's age to complete this topic Rotavirus Immunization Aged Out No lo nger eligible based on patient's age to complete this topic Insurance MEDICAID BL[place] Care Teams Coat Presser Relationship Specialty Start Date End Date Provider, None [place] PCP - General 01/19/17 Cristhian Barker MD [address] [place] [address] Consulting Physician Urology 03/19/24 Skyler Gibbs MD [address] [address] Consulting Physician Urology 04/05/24
--- OUTSIDE RECORDS SUMMARY | 2024-09-22 13:37 | XMS_ITS | Referral Summary ---
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
--- OUTSIDE RECORDS SUMMARY | 2024-09-22 13:42 | XMS_ITS | Continuity of Care Document ---
Author Organization [facility] Address [id number] [address] Phone Care Team Providers Care Market Investigator Name Role Phone Hamzah Ledezma DDS Unavailable [...] Diagnoses Date Provider Providers Copied on Encounter [facility], [id number] [place], [place], [id number], [place] tel:[phone] Dental Behavioral Medicine F2 No Information 2 Brisa Goodson. [address], [place], [id number], [place]. tel:[phone] Referring Provider: Hamzah Rivera, [address] [place], [address] . tel:[phone] [facility], [id number] [place], [place], [id number], [place] tel:[phone] Pediatrics F1 Insufficient social insurance and welfare supportLow income [facility]. [address], [place], [id number], [place]. tel:[phone] Family History Family Member Type Diagnosis Age At Onset No Information Payers Payer name Insurance type Covered republican ID Authoriza tion(s) No Information Social History Type Description Quantity Date Captured Comments Alcohol Use Details No Caffeine Use Details Unknown Tobacco Use Status No Information Smoking Status No Information Sex Male Chief Complaint And Reason For Visit No Information Reason For Referral Reason For Referral No Information Plan Of Treatment Date Type Action Status Referral Ordered: Referrals: Location: [facility] ordered History Of Present Illness Encounter Date Complaint History Of Prese nt Illness No Information Functional Status Date Functional Assessmen t No Information Instructions Date Instruction Additional Infor mation No Information Assessments Type Assessment Date No Information Patient Care Teams Name Effective Dates (start - stop) Status Members No Information
[2024-09-22 13:51] VITALS: BP 131/91; PULSE 83; RESP 16; TEMP 36.1; O2SAT 100
--- NOTE | 2024-09-22 15:34 | ED_ITS ---
HPI - General Adult General Chief complaint: Eye Problems Stated complaint: eyes painful/oozing Source: patient Mode of arrival: ambulatory Limitations: no limitations History of Present Illness HPI narrative: Patient presents for evaluation eye complaints. He initially felt like he had grit in the left eye. He now has redness, irritation, thick yellow drainage and blurred vision present. He wears contacts and so has them in. No recent exposure to keep pinkeye. No other infectious symptoms including fever, chills, nausea, vomiting, sore throat, otalgia, cough or SOB. He has not tried any therapies to assist with his symptoms. No recent HSV infection or exposure to HSV. Related Data Allergies Allergy/AdvReac Type Severity Reaction Status Date / Time iodine Allergy Intermediate THROAT Verified 08/11/23 14:13 AKLEN shellfish derived Allergy Intermediate THROAT Verified 08/11/23 14:13 KALEN Review of Systems Review of Systems: CONSTITUTIONAL: Denies fever, chills, or sweats. EYES: Reports irritation, redness, thick yellow drainage, blurred vision to both eyes ENT: Denies rhinorrhea, congestion, sore throat, or otalgia. CARDIOVASCULAR: Denies chest pain, palpitations, or edema. RESPIRATORY: Denies cough or dyspnea. GASTROINTESTINAL: Denies abdominal pain, nausea, vomiting, or diarrhea. GENITOURINARY: Denies dysuria or hematuria. SKIN: Denies rash or itching. MUSCULOSKELETAL: Denies back pain, joint pain, or myalgia. NEUROLOGIC: Denies headache, numbness, dizziness, or weakness. PSYCHIATRIC: Denies anxiety or depression. [facility] Past Medical History Medical History DAYANARA (obstructive sleep apnea) Bronchitis Right hand fracture Surgical History Surgical History History of shoulder surgery Family History Family History Other Diabetes mellitus Heart disease Hypertension Social History Social History Smoking packs per day: 0.5 Smoking cigarettes per day: 10.0 Years smoked: 15 Smoking pack-years: 7.50 Smoking status: Current every day smoker Tobacco type: cigarettes Alcohol intake: current Drinks per week: 2 Alcohol use details: Occasional Living arrangements: with family Gender identity (if verbalized by the patient): Male Spiritual care concerns: No Exam Narrative: GENERAL: Well-appearing, well-nourished, and in no acute distress. HEAD: Normocephalic, atraumatic. EYES: PERRLA and EOMI. Bilateral conjunctival injection. There is thick yellow drainage from left eye. ENT: Nares clear, no rhinorrhea or epistaxis. Mucous membranes moist. Oropharynx without tonsillar hypertrophy exudate or other lesions. Bilateral TMs pearly portillo nonbulging NECK: Supple. No adenopathy or masses. No carotid bruits or JVD CHEST: Clear to auscultation. No respiratory distress. No wheezes rales or rhonchi HEART: Regular rate and rhythm. No murmur heard. Normal peripheral pulses. ABDOMEN: Soft, nontender, nondistended, normal active bowel sounds. EXTREMITIES: Normal range of motion. No edema. SKIN: Warm, dry, no rash. NEURO: No focal deficits. Alert and oriented x3. PSYCH: Normal mood and affect. Course Course Emergency Course: This is a 39 male who presented for evaluation of bilateral eye irritation. He has evidence of conjunctivitis on exam. I instructed him several times the need to remove contacts however he was very resistant to this education. I advised potential implications including permanent impaired vision. He verbalized understanding. Will dc with ofloxacin. Follow up with primary provider. Go to the ER for worsening symptoms. Patient in agreement with plan of care. Level of Care: Express Care Visit Vital Signs Vital signs: Vital Signs Temperature 36.1 C L 09/22/24 13:51 Pulse Rate 83 09/22/24 13:51 Respiratory Rate 16 09/22/24 13:51 Blood Pressure 131/91 H 09/22/24 13:51 Pulse Oximetry 100 09/22/24 13:51 Oxygen Delivery Room Air 09/22/24 13:51 Temperature 36.1 C L 09/22/24 13:51 Pulse Rate 83 09/22/24 13:51 Respiratory Rate 16 09/22/24 13:51 Blood Pressure 131/91 H 09/22/24 13:51 Pulse Oximetry 100 09/22/24 13:51 Oxygen Delivery Room Air 09/22/24 13:51 Medical Decision Making Vital Signs Vital Signs: Vital Signs Temperature 36.1 C L 09/22/24 13:51 Pulse Rate 83 09/22/24 13:51 Respiratory Rate 16 09/22/24 13:51 Blood Pressure 131/91 H 09/22/24 13:51 Pulse Oximetry 100 09/22/24 13:51 Oxygen Delivery Room Air 09/22/24 13:51 Temperature 36.1 C L 09/22/24 13:51 Pulse Rate 83 09/22/24 13:51 Respiratory Rate 16 09/22/24 13:51 Blood Pressure 131/91 H 09/22/24 13:51 Pulse Oximetry 100 09/22/24 13:51 Oxygen Delivery Room Air 09/22/24 13:51 Discharge Plan Discharge Clinical Impression: Conjunctivitis Patient Disposition: Home, Self-Care Condition: Stable Instructions: Antibiotic Form, Conjunctivitis (ED) Additional Instructions: Please take out contacts and dispose of them Please do not reuse the contacts Patient Language: Sinhala Prescriptions: New ofloxacin 0.3 % drops See Rx Instructions .ROUTE .COMPLEX Qty: 10 0RF Rx Instructions: put 1-2 drps into affected eye(s) every 2-4 h x 2 days, then 1-2 drps 4 times/day days 3-7 No Action benzonatate 200 mg capsule 200 mg PO TID PRN (Reason: cough) Qty: 20 0RF Follow-up/Referrals: Swapna Araiza DO [Physician] - Time of Disposition: 15:32
== END 2024-09-22 15:39 | disposition home or self-care (01) ==
PROVIDERS: Emergency Provider Nurse Practitioner
DX: H10.9 Unspecified conjunctivitis (principal); F17.210 Nicotine dependence, cigarettes, uncomplicated
CPT/HCPCS: 99213; G0463